=== PATIENT | female | born 1975 | race Caucasian/White ===

== ENCOUNTER 2016-10-30 02:36 | Emergency (ER) | payer BC ==
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
[2016-10-30] MEDS: HYOSCYAMINE SULFATE ODT 0.125 MG TAB.SUBL SL ONE (03:05)
[2016-10-30] MEDS: 0.9 % SODIUM CHLORIDE 1000ML 1,000 ML IV SCH (03:06)
[2016-10-30] MEDS: ONDANSETRON HCL IV 4 MG/2 ML VIAL IVP ONE (03:06)
[2016-10-30 03:08] LABS: BASO % 0.3 % (0-6); EOS % 2.6 % (0-6); GRAN % 45.1 % (47-80); HEMATOCRIT 37.6 % (35.0-47.0); HEMOGLOBIN 13.2 gm/dl (11.6-16.0); LYMPH % 44.3 % (16-45); MEAN CELL VOLUME 81.2 fl (81-97); MEAN CORPUSCULAR HEMOGLOBIN 28.5 pg (27-33); MEAN CORPUSCULAR HGB CONC 35.1 g/dl (32-36); MEAN PLATELET VOLUME 10.1 fl (7.4-10.4); MONO % 7.7 % (0-9); PLATELET COUNT 251 K/uL (130-400); RED BLOOD COUNT 4.63 M/uL (3.80-5.40); RED CELL DISTRIBUTION WIDTH 13.9 % (11.5-14.5); WHITE BLOOD COUNT W/O DIFF 8.7 K/uL (4.2-12.2)
[2016-10-30 03:19] LABS: ALB/GLOB RATIO 1.8 (1.1-1.8); ALBUMIN 4.8 gm/dL (3.5-5.0); ALKALINE PHOSPHATASE 94 U/L (38-126); ALT/SGPT 59 U/L (9-52); ANION GAP 12.3 (7-16); AST/SGOT 31 U/L (14-36); BILIRUBIN,TOTAL 0.41 mg/dL (0.2-1.3); BLOOD UREA NITROGEN 11 mg/dL (7-17); CARBON DIOXIDE 22.7 mmol/L (22-30); CREATININE 0.7 mg/dL (0.52-1.04); EST GLOMERULAR FILTRATION RATE > 60 ml/min; GLUCOSE,RANDOM 94 mg/dL (70-110); TOTAL PROTEIN 7.5 gm/dL (6.3-8.2)
[2016-10-30 03:22] LABS: INFLUENZA A NEGATIVE (NEGATIVE); INFLUENZA B NEGATIVE (NEGATIVE)
== END 2016-10-30 03:44 | disposition home or self-care (01) ==
LOC: ER 02:36
DX: R11.2 Nausea with vomiting, unspecified (principal); R19.7 Diarrhea, unspecified
CPT/HCPCS: 99284 ×2; 96374; 96361; 85025; 80053; 87400; J1980; J2405; J7030

== ENCOUNTER 2017-05-01 08:58 | Emergency (ER) | payer BC, MEDICAID ==
--- NOTE | 2017-05-01 09:16 | Emergency Department Record ---
History of Present Illness - General Chief complaint: Dehydration Stated complaint: PT FEELS DEHYDRATED Time Seen by Provider: 05/01/17 09:09 Source: Patient Mode of Arrival: Ambulatory Limitations: No limitations - History of Present Illness Initial comments: 41 yo female presents with feeling tired and weak. She states she sat out in the sun on April 29 and got sunburn. She has been congested, sneezing, non productive cough. No fever or shortness of breath. She has had diarrhea that started yesterday. No vomiting. She is drinking fluids without limitation. No abdominal pain or blood in the stools. No recent antibiotics. MD Complaint: Generalized weakness Onset/Timin -: Days(s) Location: Generalized Improves with: None Worsens with: None Associated Symptoms: Headaches (pressure), Other - [place] Coma Scale Eye Response: (4) Open spontaneously Motor Response: (6) Obeys commands Verbal Response: (5) Oriented [place] Total: 15 - Related Data Home Medications Medication Instructions Recorded Confirmed Last Taken Cholecalciferol (Vitamin D3) 2,000 unit PO DAILY 05/01/17 05/01/17 Unknown [Vitamin D3] Previous Rx's Medication Instructions Recorded Cetirizine HCl [Zyrtec] 10 mg PO DAILY #30 cap 05/01/17 Loperamide HCl [Imodium A-D] 2 mg PO Q6H #10 tablet 05/01/17 Allergies Allergy/AdvReac Type Severity Reaction Status Date / Time amoxicillin Allergy Severe HIVES Verified 05/01/17 09:04 cephalexin monohydrate Allergy Severe HIVES Verified 05/01/17 09:04 [From Keflex] nitrofurantoin Allergy Severe HIVES Verified 05/01/17 09:04 [From Macrobid] nitrofurantoin Allergy Severe HIVES Verified 05/01/17 09:04 macrocrystalline [From Macrobid] phenazopyridine HCl Allergy Severe HIVES Verified 05/01/17 09:04 [From Pyridium] sulfamethoxazole Allergy Severe HIVES Verified 05/01/17 09:04 [From Bactrim] trimethoprim [From Bactrim] Allergy Severe HIVES Verified 05/01/17 09:04 prednisone AdvReac Mild NAUSEA Verified 05/01/17 09:04 Travel Screening - Travel/Exposure Within Last 30 Days Have you traveled within the last 30 days?: No Review of Systems Constitutional: Reports: Malaise, Weakness. Denies: Chills, Fever Eyes: Denies: Eye discharge, Eye pain, Photophobia, Vision change ENT: Reports: Congestion, Throat pain. Denies: Ear pain, Epistaxis Respiratory: Reports: Cough. Denies: Dyspnea, Hemoptysis, Stridor, Wheezes Cardiovascular: Denies: Chest pain, Palpitations, Syncope Endocrine: Denies: Fatigue, Polydipsia, Polyuria Gastrointestinal: Reports: Diarrhea. Denies: Abdominal pain, Constipation, Hematemesis, Hematochezia, Melena, Nausea, Vomiting Genitourinary: Denies: Discharge, Dysuria, Urgency Musculoskeletal: Denies: Arthralgia, Back pain, Myalgia Skin: Denies: Bruising, Change in color Neurological: Reports: Headache. Denies: Confusion, Numbness, Tingling, Tremors , Vertigo, Weakness Psychiatric: Denies: Anxiety Hematological/Lymphatic: Denies: Blood Clots, Easy bleeding, Easy bruising, Swollen glands Past Medical History - SOCIAL HISTORY Smoking Status: Current every day smoker Alcohol Use: None Drug Use: None - RESPIRATORY Hx Respiratory Disorders: No - CARDIOVASCULAR Hx Cardio Disorders: No - NEURO Hx Neuro Disorders: Yes Hx Seizures: Yes (once) - GI Hx GI Disorders: No - Hx Genitourinary Disorders: No - ENDOCRINE Hx Endocrine Disorders: No - MUSCULOSKELETAL Hx Musculoskeletal Disorders: No - PSYCH Hx Psych Problems: Yes Hx Anxiety: Yes Hx Depression: Yes Comment:: bipolar - HEMATOLOGY/ONCOLOGY Hx Hematology/Oncology Disorders: No Family Medical History Any Significant Family History?: Yes Family Hx Comment (NOT TO BE USED IN PLACE OF ITEMS BELOW): Mother-hypothyroid. Grandmother- ALzhiemer's Hx Cancer: Grandparents Physical Exam - General General Appearance: Alert, Oriented x3, Cooperative, No acute distress Limitations: No limitations - Head Head exam: Normal inspection - Eye Eye exam: Normal appearance, PERRL. negative: Conjunctival injection, Periorbital swelling - ENT ENT exam: Mucous membranes moist, Normal external ear exam, Normal orophraynx, TM's normal bilaterally. negative: Mucous membranes dry Ear exam: Normal external inspection. negative: External canal tenderness Nasal Exam: Normal inspection. negative: Active bleeding, Discharge (clear), Dried blood, Sinus tenderness Mouth exam: Normal external inspection, Tongue normal Teeth exam: Normal inspection. negative: Dental caries, Dental tenderness # Throat exam: Normal inspection. negative: Tonsillar erythema, Tonsillomegaly, Tonsillar exudate, R peritonsillar mass, L peritonsillar mass - Neck Neck exam: Normal inspection, Full ROM. negative: Lymphadenopathy, Tenderness - Respiratory Respiratory exam: Normal lung sounds bilaterally. negative: Respiratory distress - Cardiovascular Cardiovascular Exam: Regular rate, Normal rhythm, Normal heart sounds Peripheral Pulses: 2+: Radial (R), Radial (L) - GI/Abdominal GI/Abdominal exam: Soft. negative: Tenderness - Rectal Rectal exam: Deferred - exam: Deferred - Extremities Extremities exam: Normal inspection, Full ROM, Normal capillary refill. negative: Pedal edema, Tenderness - Back Back exam: Reports: Normal inspection, Full ROM. Denies: CVA tenderness (R), CVA tenderness (L), Muscle spasm, Rash noted, Tenderness - Neurological Neurological exam: Alert, Normal gait, Oriented X3. negative: Abnormal gait - Psychiatric Psychiatric exam: Normal affect, Normal mood. negative: Agitated, Anxious, Depressed - Skin Skin exam: Dry, Intact, Normal color, Warm. negative: Cyanosis, Diaphoretic, Erythema Course Vital Signs 05/01/17 09:06 Temperature 98.5 F Pulse Rate 69 Respiratory 18 Rate Blood Pressure 133/89 Pulse Ox 98 - Reevaluation(s) Reevaluation #1: The vitals were reviewed No acute abnormal vitals She is well appearing with a reassuring examination No abdominal pain No clinical signs of dehydration 05/01/17 09:18 Reevaluation #2: The UA was reviewed No acute changes, no ketones, protein, infection, or glucose She is well appearing and will be treated symptomatically 05/01/17 09:21 Disposition Disposition: Discharge Clinical Impression: Upper respiratory infection Qualifiers: URI type: unspecified URI Qualified Code(s): J06.9 - Acute upper respiratory infection, unspecified Diarrhea Qualifiers: Diarrhea type: unspecified type Qualified Code(s): R19.7 - Diarrhea, unspecified Disposition: Home, Self-Care Return To Work/School Note Provided: Yes Condition: (1) Good Instructions: Dehydration (ED) Additional Instructions: Continue to drink fluids and add foods as tolerated Return if vomiting, concerns about dehydration, pain, fever or any new concerns Call your doctor to be seen this week if not completely better Prescriptions: Cetirizine HCl [Zyrtec] 10 mg PO DAILY #30 cap Loperamide HCl [Imodium A-D] 2 mg PO Q6H #10 tablet Forms: Patient Portal Access Time of Disposition: 09:25
[2017-05-01 09:18] LABS: URINE APPEARANCE CLEAR; URINE BILIRUBIN NEGATIVE (NEGATIVE); URINE BLOOD NEGATIVE (NEGATIVE); URINE COLOR YELLOW; URINE GLUCOSE (UA) NEGATIVE (NEGATIVE); URINE KETONE NEGATIVE (NEGATIVE); URINE LEUKOCYTE ESTERASE NEGATIVE (NEGATIVE); URINE NITRITE NEGATIVE (NEGATIVE); URINE PROTEIN NEGATIVE (NEGATIVE); URINE UROBILINOGEN 0.2 E.U./dL (0.20 - 1.00)
[2017-05-01 09:21] LABS: HCG,QUALITATIVE URINE NEGATIVE (NEGATIVE)
== END 2017-05-01 09:30 | disposition home or self-care (01) ==
LOC: ER 08:58
DX: J06.9 Acute upper respiratory infection, unspecified (principal); R19.7 Diarrhea, unspecified; R51 Headache; R53.1 Weakness
CPT/HCPCS: 81003; 81025; 99282

== ENCOUNTER 2017-09-27 11:29 | Emergency (ER) | payer SELFPAY ==
[2017-09-27] MEDS ORDERED: ACETAMINOPHEN 325 MG TAB PO ONE (11:54)
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
[2017-09-27] MEDS ORDERED: KETOROLAC 30 MG/ML VIAL IM ONE (12:37)
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
== END 2017-09-27 13:15 | disposition home or self-care (01) ==
LOC: ER 11:29
DX: S09.90XA Unspecified injury of head, initial encounter (principal); M54.2 Cervicalgia; R51 Headache; V40.5XXA Car driver injured in collision with pedestrian or animal in traffic accident, initial encounter
CPT/HCPCS: 72050; 96372; 99283; 99284; J1885